=== PATIENT | female | born 1960 | race Caucasian/White ===

== ENCOUNTER 2019-08-17 10:00 | Outpatient (RCR) | payer OTHER, SELFPAY ==
--- NOTE | 2019-07-01 09:54 | HP.OTEVAL_ITS ---
Patient's Visit Information JENNIFER PERRY is a 59 year old F, referred to Occupational Therapy by Dr. Mat Srivastava MD, with a diagnosis of left MF Mallet finger. Date of Evaluation: 07/01/19 Occupational Therapist: Shonda Cox, OTR/[place], CHT - Subjective This 59 year old female was seen for OT eval with dx of left MF mallet finger. Pt states on. 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 Pt seen by Dr. Srivastava on 06/29/19. has ordered orthosis for Mallet finger- pt retired but raising grandchildren ages 7 and 14. - ADLs Bathing: Wash hair Comments: wash dishes - ROM DIP: right MF +5/ 85 left NT - Sensation Sensation Comments: denies - Quick DASH-Disab of Arm,Shoulder& Hand Quick DASH Score: 4.5450 - Goals Goal:100% adherence to protocol: Yes Comment: mallet finger prtocol Goal:ROM equal to unaffected hand: Yes Comment: after 10 weeks of orthosis use to allow for tendon to heal Goal:Critical Care Nurse Specialist/Pinch strength at least 75% of unaffected hand: Yes Goal:Full use of affected hand in daily activities including: Yes Comment: orthosis use Other Goal: pt will demo IND. donning/doffing orthosis, skin care and precautions by end of 1st session. pt will demo understanding to return to clinic for orthosis adj. - Rehabilitation General Assessment: Pt demo with 3.5 weeks from Mallet finger injury of left MF. Pt with recent dx by Dr. Srivastava and has been ed. in Mallet finger dx and healing. Pt limited with home mtg as doing the dishes because of the brace and not wanting to get it wet. has ordered custom mallet finger orthosis for pt to wear for 6-8 weeks followed with night use of orthosis for 4 weeks following d/c from day use. Pt would benefit from skilled OT services to fabricate custom orthosis, ed.pt on healing and use of orthosis. Today therapist tucker. custom mallet finger orthosis for pts left MF, ed. pt on proper donning/doffing of orthosis and skin checks. pt demo understanding of orthosis use and understanding of protocol. PT to return to clinic for orthosis adj. as needed- at 6 weeks pt to return for re-eval for healing and if able progress with tendon protocol. Pt demo understanding and agree to POC, Rehabilitation Potential: Good - Anticipated Interventions Edema Control, Orthoses, Home Program - Visit Plan Frequency: 1x/Week Duration: 6 Weeks TEXT: Thank you for the opportunity to evaluate your patient. For Medicare and Medicare HMO plans, please review the plan of care and approve it. It will need to be FAXED BACK to us at [phone] for Medicare purposes. Please let me know if there are questions or concerns regarding this plan of care. Physician Signature: Date:
--- NOTE | 2019-10-22 07:33 | HP.OT.NRP ---
JENNIFER PERRY was seen in my office for initial evaluation on 07/01/19. The following Plan of Care was established for this patient: Initial Frequency: 1x/Week Initial Duration: 6 Weeks Anticipated Interventions: Edema Control, Orthoses, Home Program This patient was last seen in our office 08/16/29. Pertinent comments regarding their Occupational therapy will appear below: pt was seen for 2 visits for mallet finger, last one being 08/17/19. Pt has not returned for further services and is d/c at this time. At this point I will be discontinuing this patient from occupational therapy. I would be happy to see this patient again in the future if found appropriate by the physician. Thank you! Shonda Cox, OTR/L, CHT
== END 2019-08-17 19:00 | disposition home or self-care (01) ==
LOC: OT 10:00
PROVIDERS: PCP Student in an Organized Health Care Education/Training Program; Referring Provider Orthopaedic Surgery; Visit Provider Orthopaedic Surgery
DX: M20.012 Mallet finger of left finger(s) (principal)
CPT/HCPCS: 97110; 97166; 97760